=== PATIENT | female | born 1975 | race Caucasian/White ===

== ENCOUNTER 2017-12-16 13:40 | Emergency (ER) | END 2017-12-16 15:20 | disposition home or self-care (01) ==

== ENCOUNTER 2018-05-11 10:29 | Emergency (ER) | END 2018-05-11 12:05 | disposition home or self-care (01) ==

== ENCOUNTER 2019-01-14 10:08 | Emergency (ER) | payer SELFPAY ==
[~2019-01-14] VITALS: Ht 160 cm; Wt 82.5 kg
[~2019-01-14 10:08] MED LIST: ASPI-727; CEPH-443 PO; CLIN300C10 PO; ENAL10TA88; METF-849; SULF1TAB31 PO
[2019-01-14 10:13] VITALS: BP 195/110; PULSE 78; RESP 18; Ht 160 cm; Wt 82.5 kg
--- NOTE | 2019-01-14 10:33 | ERD ---
ER Documentation Chief Complaint Chief Complaint C/O RIGHT 2ND FINGER/NAIL PAIN. NOT TOOK HER BP MEDS THIS MORNING. HPI 43-year-old female [id number] presents with redness and swelling to her distal right second finger that she first noticed yesterday. The area is painful. She denies any injury or trauma. No fever. No numbness or tingling. She also states she has a history of high blood pressure but did not take her labetalol today which is why her blood pressure is high. She has no chest pain palpitations shortness of breath, dizziness, headaches. ROS All systems reviewed and are negative except as per history of present illness. Medications Home Meds Active Scripts Sulfamethoxazole/Trimethoprim* (Bactrim Ds* Tablet) 1 Each Tablet, 1 TAB PO BID, #14 TAB Prov:MOHIT STOREY PA-C 05/11/18 Cephalexin* (Keflex*) 500 Mg Capsule, 500 MG PO QID for 10 Days, CAP Prov:MOHIT STOREY PA-C 05/11/18 Cephalexin* (Keflex*) 500 Mg Capsule, 500 MG PO QID for 7 Days, CAP Prov:MONICA MIRANDA PA-C 12/16/17 Reported Medications Aspirin (Adult Aspirin) 81 Mg Tab.chew 07/06/10 Metformin* (Glucophage*) 500 Mg Tab 07/06/10 Enalapril (Enalapril) 10 Mg Tablet 07/06/10 Allergies Allergies: Coded Allergies: No Known Drug Allergy (Verified Allergy, Unknown, 02/12/11) PMhx/Soc History of Surgery: No Anesthesia Reaction: No Hx Neurological Disorder: No Hx Respiratory Disorders: No Hx Cardiac Disorders: No Hx Psychiatric Problems: No Hx Miscellaneous Medical Probl: No Hx Alcohol Use: No Hx Substance Use: No Hx Tobacco Use: No Smoking Status: Never smoker FmHx Family History: No diabetes Physical Exam Vitals Vital Signs Date Temp Pulse Resp B/P (MAP) Pulse Ox O2 O2 Flow FiO2 Time Delivery Rate 01/14/19 97.8 78 18 195/110 99 10:13 (138) Physical Exam Const: No acute distress Head: Atraumatic Eyes: Normal Conjunctiva ENT: Normal External Ears, Nose and Mouth. Neck: Full range of motion. No meningismus. Resp: Clear to auscultation bilaterally Cardio: Regular rate and rhythm, no murmurs Hand -right: Skin: Distal pad surface of right second finger mildly erythematous and swollen, tender, no ingrown nail or paronychia seen Compartments: Soft Sensation: Intact shoulder/pinky/middle finger/thumb web space Bones: Nontender Snuffbox: Nontender Joints: No effusion Wrist: Flex/Ext: Normal Uln/Radial deviation: Normal Pron/Supination Normal Finger: Flex/Ext: Normal Add/abd: Normal Thumb: Flex/Ext: Normal Opposition: Normal Thumbs up: Normal Procedures/MDM 43-year-old female presents with pain redness and swelling to her distal right second finger. She is able to range the finger normally, she has no tenderness along the flexor tendon sheath. Low suspicion for flexor tendon no synovitis, herpetic joshua, or other emergent cause of her symptoms. She was given prescription for clindamycin and she should return here in 1 day for repeat w ound check and further evaluation. Her blood pressure is very elevated here today but she states she did not take her blood pressure medication today as she decided just to come to the emergency room. She was counseled on this and instructed to take her blood pressure medication. No signs of hypertensive emergency. Patient counseled regarding my diagnostic impression and care plan. Prior to discharge all questions answered. Pt agrees with treatment plan and understands strict return precautions. Pt is instructed to follow up with primary care provider within 24-48 hours. Precautionary instructions provided including instructions to return to the ER if not improving or for any worsening or changing symptoms or concerns. Departure Diagnosis: Primary Impression: Finger problem Additional Impression: Elevated blood pressure reading Condition: Stable FIDENCIO SIMPSON PA-C Jan 14, 2019 10:33
== END 2019-01-14 10:52 | disposition home or self-care (01) ==
LOC: FTE 10:08
DX: M79.89 Other specified soft tissue disorders (principal); R03.0 Elevated blood-pressure reading, without diagnosis of hypertension; E11.9 Type 2 diabetes mellitus without complications; Z79.82 Long term (current) use of aspirin; Z79.84 Long term (current) use of oral hypoglycemic drugs
CPT/HCPCS: 99283